=== PATIENT | female | born 1965 | race Hispanic/Latino ===

== ENCOUNTER 2021-03-29 13:05 | Emergency (ER) | payer SELFPAY ==
[~2021-03-29 13:05] MED LIST: Iopamidol-370 76% 500 ML 1 ML ONE
[2021-03-29 14:03] LABS: #Eosinphils 0.3 thou/uL (0.0-0.7); #Lymphocytes 1.6 thou/uL (1.20-3.40); #Monocytes 0.5 thou/uL (0.11-0.59); #Neutrophils 3.5 thou/uL (1.40-6.50); %Basophils 0.6 % (0.0-1.0); %Eosinophils 5.1 % (0.0-10.0); %Lymphocytes 27.1 % (21.0-51.0); %Monocytes 8.8 % (0.0-10.0); %Neutrophils 58.4 % (42.0-75.0); Hemoglobin 13.2 g/dL (12.0-16.0); Mean Corpuscular HGB CONC 34.6 g/dL (32.0-36.0); Mean Corpuscular Hemoglobin 31.6 pg (27.0-31.0); Mean Corpuscular Volume 91.6 fL (78.0-98.0); Mean Platelet Volume 8.9 fL (7.4-10.4); Platelet Count 223 thou/uL (130-400); Red Blood Cell (RBC) Count 4.18 mill/uL (4.20-5.40); White Blood Cell (WBC) Count 6.1 thou/uL (4.8-10.8)
[2021-03-29 14:23] LABS: ALT (SGPT) 44 U/L (8-55); AST (SGOT) 28 U/L (5-34); Albumin 3.9 g/dL (3.5-5.0); Alkaline Phosphatase 99 U/L (40-110); Anion Gap 11 mmol/L (10-20); BUN (Urea Nitrogen) 16 mg/dL (9.8-20.1); Bilirubin, Total 0.3 mg/dL (0.2-1.2); Calc. Creatinine Clearance 0 mL/min (70-130); Calcium 9.2 mg/dL (7.8-10.44); Carbon Dioxide 25 mmol/L (22-29); Chloride 105 mmol/L (98-107); Globulin 3.7 g/dL (2.4-3.5); Glucose 158 mg/dL (70-105); Lipase 39 U/L (8-78); Magnesium 2.1 mg/dL (1.6-2.6); Protein, Total 7.6 g/dL (6.0-8.3); Sodium 137 mmol/L (136-145)
[2021-03-29] MEDS ORDERED: Morphine 4 MG/ML VIAL ONE (14:38)
[2021-03-29 17:08] LABS: Bilirubin Negative (Negative); Blood, Urine Negative (Negative); Clarity Clear (Clear); Glucose, Urine (Dipstick) Normal (Negative); Ketone, Urine Negative (Negative); Leukocyte Negative Leu/uL (Negative); Nitrite Negative (Negative); Protein, Urine (Dipstick) Negative (Neg-Trace); Specific Gravity, Urine 1.005 (1.002-1.036); Urobilinogen Normal mg/dL (Less than 2)
== END 2021-03-29 17:45 | disposition home or self-care (01) ==
LOC: ERS 13:05
DX: R10.12 Left upper quadrant pain (principal); R74.01 Elevation of levels of liver transaminase levels
CPT/HCPCS: 71045; 74177; 80053; 81003; 83690; 83735; 83880; 84484; 85025; 93005; 96374; J2270; Q9967